=== PATIENT | male | born 2000 | race Caucasian/White ===

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

== ENCOUNTER 2021-03-16 22:23 | Emergency (ER) | payer OTHER ==
[~2021-03-16] VITALS: Ht 177.8 cm; Wt 72.6 kg
[2021-03-16] MEDS ORDERED: CLINDAMYCIN HC300 MG PO (22:47)
== END 2021-03-16 23:05 | disposition home or self-care (01) ==
LOC: ED 22:23
DX: K04.7 Periapical abscess without sinus (principal); K02.9 Dental caries, unspecified; Z88.1 Allergy status to other antibiotic agents; Z88.8 Allergy status to other drugs, medicaments and biological substances

== ENCOUNTER 2021-05-15 22:24 | Emergency (ER) | payer OTHER ==
[~2021-05-15] VITALS: Ht 177.8 cm; Wt 72.6 kg
[~2021-05-15 22:24] MED LIST changes: +CLINDAMYCIN HC300 MG PO
[2021-05-15] MEDS ORDERED: PREDNISONE20 M1 PO (23:56)
[2021-05-15] MEDS ORDERED: PROVENTIL HFA6.7 GM INH (23:56)
== END 2021-05-16 00:48 | disposition home or self-care (01) ==
LOC: ED 22:24
DX: U07.1 COVID-19 (principal); Z88.1 Allergy status to other antibiotic agents; Z88.8 Allergy status to other drugs, medicaments and biological substances

== ENCOUNTER 2024-04-19 18:43 | Emergency (ER) | payer OTHER ==
[~2024-04-19] VITALS: Ht 177.8 cm; Wt 83.9 kg
[~2024-04-19 18:43] MED LIST changes: +PREDNISONE20 M1 PO; +PROVENTIL HFA6.7 GM INH
[2024-04-19] MEDS ORDERED: IBUPROFEN 600 MG TAB PO ONE (19:45)
[2024-04-19] MEDS ORDERED: ACETAMINOPHEN 325 MG TAB PO ONE (19:45)
[2024-04-19 19:47] LABS: BASO % 0.3 % (0.0-1.0); EOS % 0.2 % (1.0-4.0); HEMATOCRIT 45.2 % (42.0-52.0); LYMPH # 1.4 10*3/uL (1.3-4.4); LYMPH % 12.6 % (27.0-41.0); MEAN CELL VOLUME 85.1 fl (80.0-94.0); MEAN CORPUSCULAR HGB 29.8 pg (27.0-31.0); MEAN PLATELET VOLUME 9.5 fl (9.6-12.3); MONO # 1.3 10*3/uL (0.1-1.0); MONO % 11.6 % (3.0-9.0); NEUT # 8.6 10*3/uL (2.3-7.9); NEUT % 74.8 % (47.0-73.0); PLATELET COUNT AUTOMATED 224 10*3/uL (130-400); RED BLOOD COUNT 5.31 10*6/uL (4.50-5.90); RED CELL DISTRI WIDTH 11.9 % (0-14.5); WHITE BLOOD COUNT 11.5 10*3/uL (4.8-10.8)
[2024-04-19 20:06] LABS: BUN 7 mg/dl (9-23); CHLORIDE 99 mmol/L (98-107); POTASSIUM 3.7 mmol/L (3.4-5.1)
[2024-04-19] MEDS ORDERED: LEVOFLOXACIN750 M2 PO (22:47)
[2024-04-19] MEDS ORDERED: LEVOFLOXACIN 750 MG TAB PO ONE (22:50)
== END 2024-04-19 22:51 | disposition home or self-care (01) ==
LOC: ED 18:43
PROVIDERS: Emergency Medicine
DX: J18.9 Pneumonia, unspecified organism (principal); Z20.822 Contact with and (suspected) exposure to COVID-19; J45.909 Unspecified asthma, uncomplicated; Z88.1 Allergy status to other antibiotic agents; Z88.8 Allergy status to other drugs, medicaments and biological substances; Z98.890 Other specified postprocedural states